=== PATIENT | male | born 1940 | race Caucasian/White ===

== ENCOUNTER 2017-11-22 10:15 | Inpatient (IN) | payer MEDICARE, BC ==
[~2017-11-22] VITALS: Ht 175.3 cm; Wt 90.7 kg
[~2017-11-22 10:15] MED LIST: DIOVAN HCT 3201 EAC1 ORAL; FLOMAX0.4 MG ORAL; LANSOPRAZOLE30 MG ORAL; SIMVASTATIN20 MG ORAL
[2018-07-31] MEDS ORDERED: HUMALOG100 UNIT/4 SUBQ (13:05)
[2018-07-31] MEDS ORDERED: JANUVIA50 MG ORAL (13:05)
[2018-07-31] MEDS ORDERED: LANTUS SOL100 UNIT/1 SUBQ (13:05)
[2018-07-31] MEDS ORDERED: [UNRECOGNIZED DRUG - OTHER] PO (13:05)
[2018-07-31] MEDS ORDERED: LOSARTAN POTAS100 MG ORAL (13:05)
[2018-07-31] MEDS ORDERED: CRESTOR10 M2 ORAL (13:05)
[2018-08-01] VITALS (15 sets, daily range): BP systolic 88–137; BP diastolic 52–89
[2018-08-01] MEDS ORDERED: oxyCONTIN 20mg tab ORAL ONE ×2 (06:00→13:23)
[2018-08-01] MEDS ORDERED: ceFAZolin 1gm IVPB IVPB ONE ×2 (06:00)
[2018-08-01] MEDS ORDERED: celeBREX 200mg Cap **SURGERY PATIENTS ONLY ORAL ONE ×2 (06:00→13:24)
--- NOTE | 2018-08-01 14:12 | Pre-Procedure Note/Attestation ---
Pre-Procedure Note/Attestation Complete Prior to Procedure Planned Procedure: left Procedure Narrative: left knee replacement Indications for Procedure Pre-Operative Diagnosis: left knee arthritis Attestation I attest that I discussed the nature of the procedure; its benefits; risks and complications; and alternatives (and the risks and benefits of such alternatives ), prior to the procedure, with the patient (or the patient's legal aircraft sales representative). I attest that, if there was a reasonable possibility of needing a blood transfusion, the patient (or the patient's legal aircraft sales representative) was given the [facility] standardized written summary, pursuant to the [place] Blood Safety Act ([place] Health and Safety Code # 1645, as amended). I attest that I re-evaluated the patient just prior to the surgery and that there has been no change in the patient's H&P, except as documented below: Dao Mueller MD Aug 01, 2018 14:12
--- NOTE | 2018-08-01 14:12 | Operative Note - PDOC ---
Operative Note Operative Note Pre-op Diagnosis: left knee arthritis Procedure: see op report Post-op Diagnosis: same as pre-op plus Operative Findings: consistent w/pre-op dx studies Anesthesia: general Specimen: none Complications: none Estimated Blood Loss: none Implant(s) used?: Yes Dao Mueller MD Aug 01, 2018 14:12
[2018-08-01] MEDS ORDERED: Milk of Magnesia 30ml Ud ORAL PRN (14:15)
[2018-08-01] MEDS ORDERED: Propofol 200mg/20ml IV ONE (14:40)
[2018-08-01] MEDS ORDERED: LR 1000ml ONE (14:40)
[2018-08-01] MEDS ORDERED: Sterile Water Irrig 1000ml IRRIG ONE (14:40)
[2018-08-01] MEDS ORDERED: NS Irrig 1000ml ONE (14:40)
[2018-08-01] MEDS ORDERED: Bupivacaine 0.5% Inj 30 ml vial INJ ONE (14:44)
[2018-08-01] MEDS ORDERED: cloNIDine 1000mcg/10ml inj ONE (14:44)
[2018-08-01] MEDS ORDERED: Morphine Sulfate PF 10 ML ONE (14:47)
[2018-08-01] MEDS ORDERED: Ketorolac 30mg Inj ONE (14:47)
[2018-08-01] MEDS ORDERED: Kenalog-40 1ml Vial ONE (14:47)
[2018-08-01] MEDS ORDERED: Bupivacaine w/Epi 0.25% 30ml Vial INJ ONE (14:47)
[2018-08-01] MEDS ORDERED: Bacitracin 50000 Units Vial ONE (14:48)
[2018-08-01] MEDS ORDERED: NeoSporin Gu Irrig 1ml Amp IRRIG ONE (14:48)
[2018-08-01] MEDS ORDERED: Dexamethasone 4mg/ml vial ONE (14:49)
[2018-08-01] MEDS ORDERED: Lidocaine 1% MPF 10mg/ml 5ml ONE (14:49)
[2018-08-01] MEDS ORDERED: Sodium Chloride 10ml vial INJ ONE (14:49)
[2018-08-01] MEDS ORDERED: EPINEPHrine 1mg/1ml Amp ONE (14:49)
[2018-08-01] MEDS ORDERED: Alfentanil 2ml Inj ONE (14:50)
[2018-08-01] MEDS ORDERED: ePHEDrine 50mg/ml Inj ONE (15:19)
[2018-08-01] MEDS ORDERED: LR 1000ml 1,000 ML IVLG SCH (15:34)
--- NOTE | 2018-08-01 15:42 | Anethesia Preoperative Eval ---
Anesthesia Pre-op PMH/ROS General Date of Evaluation: Aug 01, 2018 Time of Evaluation: 14:41 Anesthesiologist: Tyler ASA Score: ASA 3 Mallampati Score Class I : Soft palate, uvula, fauces, pillars visible Class II: Soft palate, uvula, fauces visible Class III: Soft palate, base of uvula visible Class IV: Only hard plate visible Mallampati Classification: Class II Surgeon: Mueller Diagnosis: L Knee Pain Surgical Procedure: l Knee Total Arthroplasty Anesthesia History: none Family History: no anesthesia problems Allergies: Coded Allergies: LEVOFLOXACIN (Verified Allergy, Mild, Rash, 04/17/13) Medications: see eMAR Patient NPO?: Yes NPO Date: Jul 31, 2018 NPO Time: 1900 Past Medical History Cardiovascular: Reports: HTN, other - HL Gastrointestinal/Genitourinary: Reports: GERD, other - Renal Cell CA Endocrine: Reports: DM PSxH Narrative: L Nephrectomy, L Knee Arthroscopy Anesthesia Pre-op Phys. Exam Physician Exam Last Vital Signs Date Time Temp Pulse Resp B/P (MAP) Pulse Ox O2 Delivery O2 Flow Rate FiO2 08/01/18 13:48 Room Air 08/01/18 13:28 97.9 93 18 137/89 (105) 96 Constitutional: NAD Neurologic: CN 2-12 intact Cardiovascular: RRR Respiratory: CTA Gastrointestinal: S/NT/ND Airway Exam Mallampati Score: Class II MO: full ROM: full Teeth: missing, intact Anesthesia Pre-op A/P Risk Assessment & Plan Assessment: ASA 3 Plan: GA, Spinal, SED Status Change Before Surgery: No Pre-Antibiotics Dru grams Ancef IV Given Within 1 Hr of Incision: Yes Time Given: 15:41 Mc Scott MD Aug 01, 2018 15:42
--- NOTE | 2018-08-01 15:43 | Immediate Post-Op Evaluation ---
Immediate Post-Op Evalulation Immediate Post-Op Evalulation Procedure: L Knee Total Arthroplasty Date of Evaluation: Aug 01, 2018 Time of Evaluation: 17:35 IV Fluids: 1000 LR Blood Products: 0 Estimated Blood Loss: 25 Urinary Output: 100 Blood Pressure Systolic: 105 Blood Pressure Diastolic: 52 Pulse Rate: 94 Respiratory Rate: 16 O2 Sat by Pulse Oximetry: 100 Temperature (Fahrenheit): 97.9 Pain Score (1-10): 1 Nausea: No Vomiting: No Complications 0 Patient Status: awake, reacts, patent, none Hydration Status: adequate Dru Grams Ancef IV Given Within 1 Hr of Incision: Yes Time Given: 15:41 Mc Scott MD Aug 01, 2018 15:43
[2018-08-01] MEDS ORDERED: Meperidine 50mg/ml Inj(FOR RIGORS ONLY) IVP PRN (15:45)
[2018-08-01] MEDS ORDERED: oxyCODONE HCL/Acetaminophen 5/325mg ORAL PRN (15:45)
[2018-08-01] MEDS ORDERED: Midazolam 2mg/2ml Inj IVP PRN (15:45)
[2018-08-01] MEDS ORDERED: Tranexamic Acid 1,000 MG in NS 65 ML IVPB ONE (15:45)
[2018-08-01] MEDS ORDERED: Norco 5mg/325mg tab ORAL PRN (15:45)
[2018-08-01] MEDS ORDERED: Hydromorphone 0.5mg/0.5ml inj IVP PRN (15:45)
[2018-08-01] MEDS ORDERED: Metoclopramide 10mg/2ml Inj IVP PRN (15:45)
[2018-08-01] MEDS ORDERED: HYDROcodone/Acetamin 7.5/325 tab ORAL PRN (15:45)
[2018-08-01] MEDS ORDERED: LORazepam Inj 2mg/ml 1ml IV PRN (15:45)
[2018-08-01] MEDS ORDERED: Atropine Sulfate 0.4mg/ml inj IVP PRN (15:45)
[2018-08-01] MEDS ORDERED: fentaNYL 100 mcg/2 mL IV PRN (15:45)
[2018-08-01] MEDS ORDERED: DiphenhydrAMINE 50mg/ml Inj IVP PRN (15:45)
[2018-08-01] MEDS ORDERED: Bacitracin 50000 Units Vial IRRIG ONE (16:49)
[2018-08-01] MEDS ORDERED: Duramorph PF 10mg/10ml amp EPIDUR ONE (16:50)
--- NOTE | 2018-08-01 17:21 | 48 Hour Post Anesthesia Eval ---
Post Anesthesia Evaluation Procedure: L Knee Total Arthroplasty Date of Evaluation: Aug 01, 2018 Time of Evaluation: 19:54 Blood Pressure Systolic: 112 0: 62 Pulse Rate: 86 Respiratory Rate: 18 Temperature (Fahrenheit): 98.2 O2 Sat by Pulse Oximetry: 100 Airway: patent Nausea: No Vomiting: No Pain Intensity: 1 Hydration Status: adequate Cardiopulmonary Status: Stable Mental Status/LOC: patient returned to baseline Follow-up Care/Observations: 0 Post-Anesthesia Complications: 0 Follow-up care needed: N/A Mc Scott MD Aug 01, 2018 17:21
[2018-08-01 18:18] LABS: HEMATOCRIT 28.4 % (42.0-52.0); HEMOGLOBIN 9.6 G/DL (14.2-18.0); LYMPHOCYTES % (AUTO) 21.3 % (20.0-45.0); MEAN CORPUSCULAR VOLUME 94 FL (80-99); MONOCYTES % (AUTO) 2.8 % (1.0-10.0); NEUTROPHILS % (AUTO) 72.9 % (45.0-75.0); PLATELET COUNT 175 K/UL (150-450); RED BLOOD COUNT 3.03 M/UL (4.70-6.10); RED CELL DISTRIBUTION WIDTH 13.1 % (11.6-14.8); WHITE BLOOD COUNT 6.2 K/UL (4.8-10.8)
[2018-08-01] MEDS ORDERED: D5 1/2NS w/KCl 20mEq 1,000 ML IV SCH (20:30)
[2018-08-01] MEDS ORDERED: Morphine Sulfate 2mg/ml Inj IVP PRN (20:30)
--- NOTE | 2018-08-01 21:15 | Operative Note - Dictated ---
DATE OF OPERATION: 07/31/2018 PREOPERATIVE DIAGNOSIS: Left knee end-stage osteoarthritis. POSTOPERATIVE DIAGNOSIS: Left knee end-stage osteoarthritis. PROCEDURE: Left total knee arthroplasty. SURGEON: Dao Mueller M.D. ANESTHESIA: Femoral with general. INDICATION FOR PROCEDURE: The patient is a pleasant gentleman who has had progressive left knee osteoarthritis, failed conservative treatment, elected to undergo left total knee arthroplasty. The risks, limitations, expectations, and complications of procedure were discussed in detail. All questions were addressed. DESCRIPTION OF PROCEDURE: After informed consent was obtained, the patient was brought to the operating room, and the patient was placed under femoral general anesthesia. Kenney catheter was placed. Ancef was administered. Tourniquet was applied to the left proximal leg. Left leg was prepped and draped in a sterile manner. Time-out was performed. Esmarch was used to exsanguinate the extremity. Skin was incised. Subvastus arthrotomy was performed. Distal femoral cutting block was placed and the distal femur was resected. Posterior to anterior sizing guide was placed and size 4 cutting block was placed. The anterior and posterior chamfer cuts were then made. The proximal aspect of the tibia was well visualized. The lateral meniscus was removed. An external tibial cutting guide was placed and proximal tibia was resected. Once that was done, size 4 femur, size 4 tibial 9 mm insert was placed. Knee came out to a slight hyperextension to 11 mm came out to full extension, good stability, full extension, 10 degrees flexion. Good stability. At this point, the patella component was appropriately externally rotated and keel punch was prepared. Patella was measured 26 mm. Freehand resection was performed, 29 mm patellar component was selected 26 mm. Cement was prepared and implants were impacted into place. Arthrotomy site was closed with #1 Vicryl suture, 2-0 Vicryl suture, and 3-0 Monocryl sutures. Dermabond and compression dressing was applied. The patient was awoken and taken to recovery room with stable vital signs. ESTIMATED BLOOD LOSS: Minimal. COMPLICATIONS: None. SPECIMENS: None. IMPLANTS: [place] size 4 femoral component, size 4 tibial base plate with an 11 mm tibial insert. Dao Mueller M.D. DR: Ishmael JOB#: [id number] CC: ANJEL
[2018-08-01] MEDS: oxyCONTIN 20mg tab ORAL SCH (21:29)
[2018-08-01] MEDS: 1/2NS w/KCl 20mEq 1000ml 1,000 ML IV SCH (22:19)
[2018-08-01] MEDS: Morphine Sulfate 4mg/ml Inj (IV/IM USE ONLY) IVP PRN (22:46)
[2018-08-01] MEDS: NovoLOG Insulin Flexpen SUBQ SCH (23:02)
[2018-08-01] MEDS: ceFAZolin sod 2 GM in D5W 110 ML IV SCH (23:58)
[2018-08-02] VITALS: BP 134/85
[2018-08-02] MEDS: SulfASALAZine 500MG tab ORAL SCH ×5 (00:20→23:28)
[2018-08-02] MEDS: oxyCODONE 5mg IR tab ORAL PRN ×5 (00:23→21:31)
[2018-08-02 04:00] VITALS: BP 126/82
[2018-08-02] MEDS: Morphine Sulfate 4mg/ml Inj (IV/IM USE ONLY) IVP PRN ×2 (04:10→08:21)
[2018-08-02] MEDS: sitaGLIPtin 50mg tab ORAL SCH (06:05)
[2018-08-02 06:17] LABS: BASOPHILS % (AUTO) 0.4 % (0.0-2.0); EOSINOPHILS % (AUTO) 0.2 % (0.0-3.0); HEMATOCRIT 29.5 % (42.0-52.0); HEMOGLOBIN 9.4 G/DL (14.2-18.0); LYMPHOCYTES % (AUTO) 16.9 % (20.0-45.0); MEAN CORPUSCULAR VOLUME 92 FL (80-99); MONOCYTES % (AUTO) 10.9 % (1.0-10.0); NEUTROPHILS % (AUTO) 71.6 % (45.0-75.0); PLATELET COUNT 181 K/UL (150-450); RED BLOOD COUNT 3.21 M/UL (4.70-6.10); RED CELL DISTRIBUTION WIDTH 12.9 % (11.6-14.8); WHITE BLOOD COUNT 8.6 K/UL (4.8-10.8)
[2018-08-02] MEDS: NovoLOG Insulin Flexpen SUBQ SCH ×4 (06:30→20:23)
[2018-08-02 08:00] VITALS: BP 126/62
[2018-08-02] MEDS: Docusate 100mg cap ORAL SCH ×3 (08:21→17:28)
[2018-08-02] MEDS: celeBREX 200mg Cap **SURGERY PATIENTS ONLY ORAL SCH (08:27)
[2018-08-02] MEDS: ceFAZolin sod 2 GM in D5W 110 ML IV SCH (08:28)
[2018-08-02] MEDS: Acetaminophen 500mg (ES) tab ORAL SCH ×3 (08:28→17:30)
[2018-08-02] MEDS: oxyCONTIN 20mg tab ORAL SCH (08:28)
--- NOTE | 2018-08-02 10:40 | Consultation ---
Consult Note Assessment/Plan #[id number] lft tka DM HTN HLD Sharyn Wade DO Aug 02, 2018 10:39
[2018-08-02] MEDS ORDERED: oxyCODONE 5mg IR tab ORAL PRN (11:30)
[2018-08-02] MEDS ORDERED: Morphine Sulfate 2mg/ml Inj IVP PRN (11:30)
[2018-08-02] MEDS: 1/2NS w/KCl 20mEq 1000ml 1,000 ML IV SCH (11:48)
[2018-08-02 12:00] VITALS: BP 132/71
[2018-08-02 16:00] VITALS: BP 133/71
[2018-08-02 20:00] VITALS: BP 127/77
[2018-08-02] MEDS: Atorvastatin 20mg tab ORAL SCH (20:18)
[2018-08-02] MEDS: Levemir Flexpen SUBQ SCH (20:24)
[2018-08-03] VITALS: BP 115/61
[2018-08-03 04:00] VITALS: BP 138/75
[2018-08-03] MEDS: oxyCODONE 5mg IR tab ORAL PRN ×2 (05:46→11:42)
[2018-08-03] MEDS: sitaGLIPtin 50mg tab ORAL SCH (06:07)
[2018-08-03] MEDS: SulfASALAZine 500MG tab ORAL SCH ×4 (06:07→23:33)
[2018-08-03 06:08] LABS: BASOPHILS % (AUTO) 0.7 % (0.0-2.0); HEMATOCRIT 28.9 % (42.0-52.0); HEMOGLOBIN 9.3 G/DL (14.2-18.0); LYMPHOCYTES % (AUTO) 20.3 % (20.0-45.0); MEAN CORPUSCULAR VOLUME 93 FL (80-99); MONOCYTES % (AUTO) 14.9 % (1.0-10.0); PLATELET COUNT 171 K/UL (150-450); RED BLOOD COUNT 3.12 M/UL (4.70-6.10); RED CELL DISTRIBUTION WIDTH 13.4 % (11.6-14.8); WHITE BLOOD COUNT 8.7 K/UL (4.8-10.8)
[2018-08-03] MEDS: NovoLOG Insulin Flexpen SUBQ SCH ×4 (06:20→21:00)
[2018-08-03 08:00] VITALS: BP 147/85
[2018-08-03] MEDS: Docusate 100mg cap ORAL SCH ×3 (08:34→18:10)
[2018-08-03] MEDS: Acetaminophen 500mg (ES) tab ORAL SCH ×3 (08:34→18:10)
[2018-08-03] MEDS: celeBREX 200mg Cap **SURGERY PATIENTS ONLY ORAL SCH (08:35)
[2018-08-03 12:00] VITALS: BP 123/77
--- NOTE | 2018-08-03 13:57 | Pulmonology Progress Note ---
Assessment/Plan Assessment/Plan L TKA DM HTN Pain much improved pain contro pt wound care dvt prophyalsix dc panning rehab Subjective Constitutional: Reports: no symptoms HEENT: Repors: no symptoms Respiratory: Reports: no symptoms Genitourinary: Reports: no symptoms Allergies: Coded Allergies: LEVOFLOXACIN (Verified Allergy, Mild, Rash, 04/17/13) Subjective pain better controlle out of bed working withpt on ra tolerating po Objective Last 24 Hour Vital Signs Date Time Temp Pulse Resp B/P (MAP) Pulse Ox O2 Delivery O2 Flow Rate FiO2 08/03/18 12:00 98.5 108 19 123/77 (92) 96 08/03/18 09:04 98.0 08/03/18 09:00 Room Air Room Air 08/03/18 08:00 98.4 98 17 147/85 (105) 94 08/03/18 04:00 98.0 90 18 138/75 (96) 98 08/03/18 00:00 98.4 95 18 115/61 (79) 98 08/02/18 21:00 Room Air Room Air 08/02/18 20:00 98.2 89 18 127/77 (94) 98 08/02/18 16:00 98.0 94 20 133/71 (91) 95 Intake and Output 08/02/18 08/03/18 19:00 07:00 Intake Total 1732 ml 480 ml Output Total 600 ml 2300 ml Balance 1132 ml -1820 ml Intake Oral 720 ml 480 ml IV Total 1012 ml Output Urine Total 600 ml 2300 ml General Appearance: WD/WN Respiratory/Chest: lungs clear, normal breath sounds Cardiovascular: normal rate, regular rhythm Abdomen: soft, non tender, no organomegaly Extremities: no cyanosis Skin: no rash Neurologic/Psychiatric: abnormal gait, alert, oriented x 3 Microbiology Date/Time Source Procedure Growth Status 08/01/18 13:05 Nasal Nares MRSA Culture - Final NO METHICILLIN RESISTANT STAPH AUREUS... Complete Laboratory Tests 08/03/18 05:40: White Blood Count 8.7, Red Blood Count 3.12L, Hemoglobin 9.3L, Hematocrit 28.9L , Mean Corpuscular Volume 93, Mean Corpuscular Hemoglobin 29.9, Mean Corpuscular Hemoglobin Concent 32.3, Red Cell Distribution Width 13.4, Platelet Count 171, Mean Platelet Volume 7.4, Neutrophils (%) (Auto) 59.0, Lymphocytes (% ) (Auto) 20.3, Monocytes (%) (Auto) 14.9H, Eosinophils (%) (Auto) 5.0H, Basophils (%) (Auto) 0.7 Current Medications Medications (Trade) Dose Ordered Sig/Katia Route PRN Reason Start Time Stop Time Status Last Admin Dose Admin Acetaminophen (Tylenol) 1,000 mg THREE TIMES A DAY ORAL 08/02/18 09:00 09/01/18 08:59 08/03/18 13:43 Aspirin (ASA) 325 mg Q12HR ORAL 08/02/18 18:00 09/01/18 17:59 08/03/18 08:33 Atorvastatin Calcium (Lipitor) 40 mg BEDTIME ORAL 08/02/18 21:00 09/01/18 20:59 08/02/18 20:18 Celecoxib (CeleBREX) 200 mg DAILY ORAL 08/02/18 09:00 09/01/18 08:59 08/03/18 08:35 Dextrose (Dextrose 50%) 25 ml Q30M PRN IV Hypoglycemia 08/01/18 22:00 08/31/18 21:59 Dextrose (Dextrose 50%) 50 ml Q30M PRN IV Hypoglycemia 08/01/18 22:00 08/31/18 21:59 Docusate Sodium (Colace) 100 mg THREE TIMES A DAY ORAL 08/02/18 09:00 09/01/18 08:59 08/03/18 13:42 Ferrous Sulfate (Feosol) 325 mg THREE TIMES A DAY ORAL 08/02/18 09:00 09/01/18 08:59 08/03/18 13:42 Gabapentin (Neurontin) 100 mg THREE TIMES A DAY ORAL 08/02/18 09:00 09/01/18 08:59 08/03/18 13:42 Insulin Aspart (NovoLOG) BEFORE MEALS AND HS SUBQ 08/01/18 22:30 08/31/18 22:29 08/03/18 11:35 Insulin Detemir (Levemir) 12 units BEDTIME SUBQ 08/02/18 21:00 09/01/18 20:59 08/02/18 20:24 Magnesium Hydroxide (Mom) 30 ml DAILY PRN ORAL Constipation 08/01/18 14:15 08/31/18 14:14 Morphine Sulfate (Morphine Sulfate) 2 mg Q3H PRN IVP Severe Breakthru Pain (>7) 08/02/18 11:30 08/08/18 20:29 Ondansetron HCl (Zofran) 4 mg Q6H PRN IVP Nausea & Vomiting 08/01/18 20:30 08/31/18 20:29 Oxycodone HCl (Roxicodone) 5 mg Q4H PRN ORAL Mild Pain (Pain Scale 1-3) 08/02/18 11:30 08/09/18 11:29 Oxycodone HCl (Roxicodone) 10 mg Q4H PRN ORAL Moderate Pain (Pain Scale 4-6) 08/02/18 11:30 08/09/18 11:29 08/03/18 11:42 Oxycodone HCl (Roxicodone) 15 mg Q4H PRN ORAL Severe Pain (Pain Scale 7-10) 08/02/18 11:30 08/09/18 11:29 Sitagliptin Phosphate (Januvia) 50 mg ACBREAKFAST ORAL 08/02/18 06:30 09/01/18 06:29 08/03/18 06:07 Sulfasalazine (Azulfidine) 500 mg EVERY 6 HOURS ORAL 08/02/18 00:00 09/01/18 00:00 08/03/18 11:35 Temazepam (Restoril) 7.5 mg HSPRN PRN ORAL Insomnia 08/01/18 21:00 08/08/18 20:59 08/01/18 23:04 Sharyn Wade DO Aug 03, 2018 13:57
--- NOTE | 2018-08-03 15:30 | Consultation ---
DATE OF CONSULTATION: 08/02/2018 PULMONARY CONSULTATION CONSULTING PHYSICIAN: Sharyn Wade D.O. REASON FOR CONSULTATION: Postop shortness of breath, medical management. HISTORY OF PRESENT ILLNESS: This is an elderly gentleman, who is status post left TKA by Dr. Mueller on 08/01/2018. He is having significant postoperative pain, which has been reviewed on OxyContin, IV morphine, and oxycodone. He denies any chest pain, nausea, vomiting, diarrhea, urine output, and no bowel movement at this time. PAST MEDICAL HISTORY: Includes diabetes, hypercholesterolemia, and peripheral neuropathy. SOCIAL HISTORY: Negative for tobacco or drugs. MEDICATIONS: Pre-hospital and current hospital medications were reviewed, reconciled, and documented in the electronic medical record by dose, frequency, and route. ALLERGIES: He has no known drug allergies. CODE STATUS: He is Full code. REVIEW OF SYSTEMS: Previously negative for chest pain, short of breath, nausea, diarrhea, fever, chills, or weight changes. PHYSICAL EXAMINATION: GENERAL: At the time of exam, he is alert. He is oriented. He is in no acute respiratory distress. VITAL SIGNS: He is afebrile. Pulse 95, blood pressure 115/61, and 98% on room air. HEENT: Normocephalic and atraumatic. Oropharynx is moist. Nasal mucosa moist. NECK: Supple without lymphadenopathy. LUNGS: . HEART: Regular rhythm without murmur. ABDOMEN: Soft, nontender. Positive bowel sounds EXTREMITIES: With trace edema on the left. Decreased range of motion secondary to postoperative state. NEUROLOGIC: No focal neurologic deficits. SKIN: No skin rashes or wounds are present. LABORATORY AND DIAGNOSTIC DATA: His white count is 8.6, hemoglobin 9.4, and platelets are 181. Chemistries have not been obtained. No other imaging is available. EKG is negative for acute ST changes. ASSESSMENT: Status post TKA, diabetes, hypertension. PLAN: Postoperative care will be continued. Pain control will be modified to include oxycodone q. 4 hours p.r.n., discontinue the OxyContin and p.r.n. breakthrough with the IV morphine. DVT prophylaxis b.i.d. has been initiated. Aspiration precautions. Glycemia control. Bowel care and we will continue to follow the patient. He has been going to rehabilitation and arrangements will be made. Sharyn Wade D.O. DR: MICHAEL JOB#: [id number] CC:
[2018-08-03 16:00] VITALS: BP 111/66
[2018-08-03] MEDS: Atorvastatin 20mg tab ORAL SCH (20:24)
[2018-08-03] MEDS: Levemir Flexpen SUBQ SCH (20:25)
[2018-08-03 20:53] VITALS: BP 129/80
[2018-08-04] VITALS: BP 133/76
[2018-08-04 04:00] VITALS: BP 135/76
[2018-08-04] MEDS: oxyCODONE 5mg IR tab ORAL PRN (04:03)
[2018-08-04] MEDS: SulfASALAZine 500MG tab ORAL SCH ×2 (06:09→11:22)
[2018-08-04] MEDS: NovoLOG Insulin Flexpen SUBQ SCH ×3 (06:24→16:30)
[2018-08-04] MEDS: sitaGLIPtin 50mg tab ORAL SCH (06:24)
[2018-08-04 08:00] VITALS: BP 129/79
[2018-08-04 08:02] LABS: BASOPHILS % (AUTO) 0.7 % (0.0-2.0); EOSINOPHILS % (AUTO) 5.4 % (0.0-3.0); HEMATOCRIT 28.7 % (42.0-52.0); HEMOGLOBIN 9.4 G/DL (14.2-18.0); LYMPHOCYTES % (AUTO) 16.9 % (20.0-45.0); MEAN CORPUSCULAR VOLUME 92 FL (80-99); MONOCYTES % (AUTO) 11.9 % (1.0-10.0); NEUTROPHILS % (AUTO) 65.1 % (45.0-75.0); PLATELET COUNT 169 K/UL (150-450); RED BLOOD COUNT 3.11 M/UL (4.70-6.10); RED CELL DISTRIBUTION WIDTH 12.8 % (11.6-14.8)
[2018-08-04] MEDS: oxyCODONE 15mg IR tab ORAL PRN ×2 (08:39→13:54)
--- NOTE | 2018-08-04 08:56 | General Progress Note ---
Assessment/Plan Assessment/Plan L TKA DM HTN Pain Improved pain contro PT, ambulate wound care dvt prophyalsix dc planning rehab disc w PT, RN Subjective Time patient seen: 08:55 Allergies: Coded Allergies: LEVOFLOXACIN (Verified Allergy, Mild, Rash, 04/17/13) Subjective LLE pain Objective Last 24 Hour Vital Signs Date Time Temp Pulse Resp B/P (MAP) Pulse Ox O2 Delivery O2 Flow Rate FiO2 08/04/18 08:00 98.3 105 21 129/79 (96) 95 08/04/18 04:00 98.0 84 17 135/76 (95) 98 08/04/18 00:00 98.0 90 18 133/76 (95) 98 08/03/18 21:00 Room Air Room Air 08/03/18 20:53 98.2 83 18 129/80 (96) 95 08/03/18 18:59 97.9 08/03/18 16:00 97.9 82 19 111/66 (81) 96 08/03/18 12:00 98.5 108 19 123/77 (92) 96 08/03/18 09:00 Room Air Room Air Intake and Output 08/03/18 08/04/18 18:59 06:59 Intake Total 1200 ml Output Total 2850 ml Balance -1650 ml Intake Oral 1200 ml Output Urine Total 2850 ml Laboratory Tests 08/04/18 06:47: White Blood Count 8.0, Red Blood Count 3.11L, Hemoglobin 9.4L, Hematocrit 28.7L , Mean Corpuscular Volume 92, Mean Corpuscular Hemoglobin 30.1, Mean Corpuscular Hemoglobin Concent 32.6, Red Cell Distribution Width 12.8, Platelet Count 169, Mean Platelet Volume 7.0, Neutrophils (%) (Auto) 65.1, Lymphocytes (% ) (Auto) 16.9L, Monocytes (%) (Auto) 11.9H, Eosinophils (%) (Auto) 5.4H, Basophils (%) (Auto) 0.7 Height (Feet): 5 Height (Inches): 9.00 Weight (Pounds): 200 General Appearance: alert, mild distress, overweight Cardiovascular: regular rhythm, tachycardia Respiratory/Chest: lungs clear Edema: 2+ Leg (L) Jamie Johnson MD Aug 04, 2018 08:56
[2018-08-04] MEDS: celeBREX 200mg Cap **SURGERY PATIENTS ONLY ORAL SCH (09:27)
[2018-08-04] MEDS: Acetaminophen 500mg (ES) tab ORAL SCH ×2 (09:28→13:54)
[2018-08-04] MEDS: Docusate 100mg cap ORAL SCH ×2 (09:28→13:55)
[2018-08-04 12:00] VITALS: BP 119/74
[2018-08-04] MEDS ORDERED: SULFASALAZINE500 MG ORAL (14:52)
[2018-08-04] MEDS ORDERED: PERCOCET 10-321 EACH ORAL (14:55)
[2018-08-04] MEDS ORDERED: NAPROXEN250 MG ORAL (14:56)
[2018-08-04] MEDS ORDERED: CYCLOBENZAPRINE10 MG ORAL (14:57)
[2018-08-04] MEDS ORDERED: NEURONTIN100 MG ORAL (14:59)
[2018-08-04] MEDS ORDERED: ASPIRIN325 MG ORAL (15:01)
[2018-08-04 16:00] VITALS: BP 94/55
[2018-08-04 17:00] VITALS: BP 141/74
--- NOTE | 2018-08-05 17:02 | Cardiology Report ---
APPROVED REPORT EKG Measurement Heart [id number] Normal sinus rhythm Right bundle branch block Abnormal ECG
--- NOTE | 2018-08-06 14:12 | Discharge Summary ---
Discharge Summary Hospital Course Date of Admission Aug 01, 2018 at 12:36 Date of Discharge Aug 04, 2018 at 17:12 Admitting Diagnosis end stage osteoarthritis left knee Reason for Hospitalization: elective surgery HPI Kike Finn is a 78 year old male who was admitted on Aug 01, 2018 at 12: 36 for Left knee osteoarthritis. Patient has had progressive left knee osteoarthritis, failed conservative treatment, elected to undergo left total knee arthroplasty. Patient was admitted for elective surgery. Consultations dr Johnson - IM/gamma ray operator/critical care Procedures s/p total knee arthroplasty 08/[address] Mueller [facility] Course status post surgery course of recovery uneventful initially IV fluids s/p perioperative antibiotics neurovascular status closely monitored, stable incision clean, dry ,and intact pain management addressed , and pain controlled hemodynamically stable patient was working with PT /OT therapists fall precautions maintained tolerated diet , IV fluids discontinued GI prophylaxis provided antiemetics were on board as needed blood pressure was clsoely monitored, remained stable blood sugar was managed with Januvia and long acting Levemir voided freely bowel regimen instituted patient required further rehabilitation in acute hospital patient was transferred to [facility] for further rehabilitation and management FINAL DIAGNOSES s/p end stage osteoarthritis s/p Left total knee arthroplasty HTBN Diabetes Postoperative pain Discharge Medications Continued Medications: Aspirin* (Aspirin*) 325 Mg Tablet 325 MG ORAL DAILY, #42 TAB (This prescription has been renewed) Cyclobenzaprine Hcl* (Flexeril*) 10 Mg Tablet 10 MG ORAL TWICE A DAY, #60 TAB (This prescription has been renewed) Gabapentin* (Neurontin*) 100 Mg Capsule 100 MG ORAL THREE TIMES A DAY, #90 CAP 0 Refills (This prescription has been renewed) Insulin Glargine (Lantus) 100 Unit/1 Ml Insuln.pen 12 UNITS SUBQ BEDTIME, #1 EA 0 Refills (This prescription has been renewed) Insulin Lispro (Humalog) 100 Unit/1 Ml Cartridge 5 SUBQ BEFORE MEALS, #1 UNITS 0 Refills (This prescription has been renewed) Losartan Potassium (Losartan Potassium) 100 Mg Tablet 100 MG ORAL DAILY, TAB (This prescription has been renewed) Naproxen* (Naprosyn*) 250 Mg Tablet 500 MG ORAL TWICE A DAY, #60 TAB 0 Refills (This prescription has been renewed) Oxycodone Hcl/Acetaminophen 10-325 Mg Tablet (Percocet 10-325 Mg Tablet*) 1 Each Tablet 1 TAB ORAL Q6H PRN for For Pain, #30 TAB 0 Refills (This prescription has been renewed) Rosuvastatin Calcium* (Crestor*) 10 Mg Tablet 10 MG ORAL DAILY, TAB (This prescription has been renewed) Sitagliptin (Januvia) 50 Mg Tablet 50 MG ORAL DAILY, TAB (This prescription has been renewed) Sulfasalazine* (Azulfidine*) 500 Mg Tablet 500 MG ORAL FOUR TIMES A DAY, TAB (This prescription has been renewed) Tamsulosin HCl (Flomax) 0.4 Mg Cap 0.4 MG ORAL DAILY, TAB (This prescription has been renewed) Discharge Condition Upon Discharge: stable Discharge Disposition Patient was discharged to Acute Rehab Hosp/Unit(62) Discharge Instructions Discharge Instructions Special Instructions I have been assigned to complete a D/C Summary on this account. I was not involved in the patient management Liana Damico NP Aug 06, 2018 14:12
== END 2018-08-04 17:12 | disposition short-term general hospital (02) | DRG 470 ==
LOC: SDSOVERFLO 08-01 12:36 → 3E 08-01 20:23
PROC: 0SRD0J9 Replacement of Left Knee Joint with Synthetic Substitute, Cemented, Open Approach (ICD-10-PCS; principal; 2018-07-31)
DX: M17.12 Unilateral primary osteoarthritis, left knee (principal); E11.9 Type 2 diabetes mellitus without complications; G89.18 Other acute postprocedural pain; Z88.1 Allergy status to other antibiotic agents; Z79.82 Long term (current) use of aspirin; Z79.4 Long term (current) use of insulin; E78.5 Hyperlipidemia, unspecified; I10 Essential (primary) hypertension; G62.9 Polyneuropathy, unspecified
CPT/HCPCS: 36415; 82962; 85025; 86850; 86900; 86901; 87081; 93005; 94003; 94150; J1815; J2405; J3490; S5561

== ENCOUNTER 2019-08-07 05:35 | Day surgery (SDC) | payer MEDICARE, BC ==
[2019-08-07] VITALS (10 sets, daily range): BP systolic 98–124; BP diastolic 60–82
[~2019-08-07] VITALS: Ht 175.3 cm; Wt 83.9 kg
[~2019-08-07 05:35] MED LIST changes: +ASPIRIN325 MG ORAL; +CRESTOR10 M2 ORAL; +CYCLOBENZAPRINE10 MG ORAL; +HUMALOG100 UNIT/4 SUBQ; +JANUVIA50 MG ORAL; +LANTUS SOL100 UNIT/1 SUBQ; +LOSARTAN POTAS100 MG ORAL; +NAPROXEN250 MG ORAL; +NEURONTIN100 MG ORAL; +PERCOCET 10-321 EACH ORAL; +SULFASALAZINE500 MG ORAL; +[UNRECOGNIZED DRUG - OTHER] PO
[2019-08-07] MEDS ORDERED: ceFAZolin sod 1gm in D5W 55ml IVPB ONE (06:00)
[2019-08-07] MEDS ORDERED: celeBREX 200mg Cap **SURGERY PATIENTS ONLY ORAL ONE (06:00)
[2019-08-07] MEDS ORDERED: oxyCONTIN 20mg tab PO ONE (06:00)
[2019-08-07] MEDS ORDERED: fentaNYL 100 mcg/2 mL IV ONE (07:02)
[2019-08-07] MEDS ORDERED: Propofol 200mg/20ml IV ONE (07:03)
[2019-08-07] MEDS ORDERED: Lidocaine 1% MPF 10mg/ml 5ml ONE (07:03)
[2019-08-07] MEDS ORDERED: Sterile Water Irrig 1000ml IRRIG ONE (07:12)
[2019-08-07] MEDS ORDERED: NS Irrig 1000ml ONE (07:12)
[2019-08-07] MEDS ORDERED: LR 1000ml ONE (07:12)
[2019-08-07] MEDS ORDERED: Bupivacaine 0.25% Inj 30ml INJ ONE (07:24)
--- NOTE | 2019-08-07 07:44 | Pre-Procedure Note/Attestation ---
Pre-Procedure Note/Attestation Complete Prior to Procedure Planned Procedure: right Procedure Narrative: carpel release Indications for Procedure Pre-Operative Diagnosis: right carpel tunnel syndrome Attestation I attest that I discussed the nature of the procedure; its benefits; risks and complications; and alternatives (and the risks and benefits of such alternatives ), prior to the procedure, with the patient (or the patient's legal canvas products sales representative). I attest that, if there was a reasonable possibility of needing a blood transfusion, the patient (or the patient's legal canvas products sales representative) was given the [facility] standardized written summary, pursuant to the [place] Blood Safety Act ([place] Health and Safety Code # 1645, as amended). I attest that I re-evaluated the patient just prior to the surgery and that there has been no change in the patient's H&P, except as documented below: Dao Mueller MD Aug 07, 2019 07:44
--- NOTE | 2019-08-07 07:44 | Operative Note - PDOC ---
Operative Note Operative Note Pre-op Diagnosis: right carpel tunnel syndrome Procedure: see op report Post-op Diagnosis: same as pre-op plus Operative Findings: consistent w/pre-op dx studies Anesthesia: MAC Specimen: none Complications: none Condition: stable Estimated Blood Loss: none Implant(s) used?: No Dao Mueller MD Aug 07, 2019 07:44
[2019-08-07] MEDS ORDERED: HYDROmorphone 1mg/ml Carpuject SUBQ PRN (07:45)
[2019-08-07] MEDS ORDERED: D5 1/2NS 1,000 ML IV SCH (07:45)
[2019-08-07] MEDS ORDERED: HYDROcodone/Acetamin 5/325 tab ORAL PRN (07:45)
[2019-08-07] MEDS ORDERED: Tylenol #3 tab (300mg/30mg) ORAL PRN (07:45)
[2019-08-07] MEDS ORDERED: Hydromorphone 0.5mg/0.5ml inj IVP PRN (08:00)
[2019-08-07] MEDS ORDERED: LR 1000ml 1,000 ML IVLG SCH (08:00)
--- NOTE | 2019-08-07 08:00 | Anethesia Preoperative Eval ---
Anesthesia Pre-op PMH/ROS General Date of Evaluation: Aug 07, 2019 Time of Evaluation: 07:10 Anesthesiologist: Mack ASA Score: ASA 3 Mallampati Score Class I : Soft palate, uvula, fauces, pillars visible Class II: Soft palate, uvula, fauces visible Class III: Soft palate, base of uvula visible Class IV: Only hard plate visible Mallampati Classification: Class II Surgeon: Ervin Diagnosis: R CTS Surgical Procedure: Carpal tunnel release Anesthesia History: none Family History: no anesthesia problems Allergies: Coded Allergies: LEVOFLOXACIN (Verified Allergy, Mild, Rash, 04/17/13) Medications: see eMAR Patient NPO?: Yes Past Medical History Cardiovascular: Reports: HTN; Denies: CAD, AR, valve dz, arrhythmia, other Pulmonary: Denies: asthma, COPD, ISAAC, other Gastrointestinal/Genitourinary: Reports: GERD, CRI Neurologic/Psychiatric: Reports: depression/anxiety, other - chronic pain; Denies: dementia, CVA, TIA Endocrine: Reports: DM - stable on insulin; Denies: hypothyroidism, steroids, other HEENT: Denies: cataract (L), cataract (R), glaucoma, KARUK (L), KARUK (R), other Hematology/Immune: Reports: anemia - mild; Denies: DVT, bleeding disorder, other Musculoskeletal/Integumentary: Reports: RA, DJD; Denies: OA, DDD, edema, other PMH Narrative: as above PSxH Narrative: Nephrectomy, L knee replacement Anesthesia Pre-op Phys. Exam Physician Exam Last Vital Signs Date Time Temp Pulse Resp B/P (MAP) Pulse Ox O2 Delivery O2 Flow Rate FiO2 08/07/19 07:12 Room Air 08/07/19 06:59 98.4 80 18 124/65 95 Constitutional: NAD Neurologic: CN 2-12 intact Cardiovascular: RRR, no M/R/G Respiratory: CTA Gastrointestinal: S/NT/ND Airway Exam Mallampati Score: Class II MO: limited Neck: stiff ROM: limited Teeth: missing Dentures: no upper, no lower Anesthesia Pre-op A/P Labs see chart Studies Pre-op Studies: EKG - SR Risk Assessment & Plan Assessment: ASA 3 Plan: GA with LMA Status Change Before Surgery: No Pre-Antibiotics Drug: Ancef 1gr. Given Within 1 Hr of Incision: Yes Time Given: 07:58 Hal Giron MD Aug 07, 2019 07:59
--- NOTE | 2019-08-07 08:56 | Immediate Post-Op Evaluation ---
Immediate Post-Op Evalulation Immediate Post-Op Evalulation Procedure: R carpal tonnel release Date of Evaluation: Aug 07, 2019 Time of Evaluation: 08:55 IV Fluids: 800 Blood Products: none Estimated Blood Loss: min Urinary Output: none Blood Pressure Systolic: 107 Blood Pressure Diastolic: 64 Pulse Rate: 78 Respiratory Rate: 20 O2 Sat by Pulse Oximetry: 99 Temperature (Fahrenheit): 97.5 Pain Score (1-10): 1 Nausea: No Vomiting: No Complications none Patient Status: reacts, patent, none Hydration Status: adequate Hal Giron MD Aug 07, 2019 08:56
--- NOTE | 2019-08-07 09:54 | 48 Hour Post Anesthesia Eval ---
Post Anesthesia Evaluation Procedure: R carpal tonnel release Date of Evaluation: Aug 07, 2019 Time of Evaluation: 09:52 Blood Pressure Systolic: 102 0: 56 Pulse Rate: 76 Respiratory Rate: 20 Temperature (Fahrenheit): 97.6 O2 Sat by Pulse Oximetry: 98 Airway: patent Nausea: No Vomiting: No Pain Intensity: 2 Hydration Status: adequate Cardiopulmonary Status: stable Mental Status/LOC: patient returned to baseline Follow-up Care/Observations: n/a Post-Anesthesia Complications: none Follow-up care needed: ready to discharge Hal Giron MD Aug 07, 2019 09:54
--- NOTE | 2019-08-07 14:30 | Operative Note - Dictated ---
DATE OF OPERATION: 08/07/2019 PREOPERATIVE DIAGNOSIS: Right wrist end-stage carpal tunnel syndrome. POSTOPERATIVE DIAGNOSIS: Right wrist end-stage carpal tunnel syndrome. PROCEDURE: 1. Right wrist median nerve decompression at the wrist. 2. Synovectomy flexor tendon cubital tunnel. SURGEON: Dao Mueller M.D. ANESTHESIA: MAC with local. INDICATION FOR PROCEDURE: The patient is a pleasant gentleman who has had progressive carpal tunnel syndrome . Did not respond to conservative treatment. Elected to undergo carpal tunnel release. Risks, limitations, expectations, and complications of procedure were discussed in detail including the need for future surgery, nerve vessel damage, continued pain, risk of anesthesia, medical complications, all questions addressed. DESCRIPTION OF PROCEDURE: After informed was obtained, the patient was brought to the operating room. The patient was placed under general anesthesia. Right arm was prepped and draped in a sterile manner. Time-out was performed. The carpal tunnel was marked out. Esmarch used to exsanguinate the extremity. Skin was incised. Blunt dissection was performed. The palmar fascia was released. Once that was done, the transverse carpal ligament was identified. This under direct visualization was incised once the carpal tunnel was entered. Further release of the carpal tunnel proximally and distally were performed using direct visualization using the tenotomy scissors. Once adequate release proximally and distally was performed, the wound was copiously irrigated. Skin was approximated with 4-0 nylon sutures. Steri-Strips and a compression dressing were applied. The patient was awoken and taken to recovery room with stable vital signs. ESTIMATED BLOOD LOSS: None. COMPLICATIONS: None. SPECIMENS: None. IMPLANTS: None. Dao Mueller M.D. DR: CALVIN JOB#: [id number] CC:
== END 2019-08-07 12:20 | disposition home or self-care (01) ==
LOC: SUR 05:35
DX: G56.01 Carpal tunnel syndrome, right upper limb (principal); I10 Essential (primary) hypertension; K21.9 Gastro-esophageal reflux disease without esophagitis; E11.9 Type 2 diabetes mellitus without complications; Z88.8 Allergy status to other drugs, medicaments and biological substances; F32.9 Major depressive disorder, single episode, unspecified; F41.9 Anxiety disorder, unspecified; Z90.5 Acquired absence of kidney; Z96.652 Presence of left artificial knee joint; M06.9 Rheumatoid arthritis, unspecified
CPT/HCPCS: 64721; 82962; J0690; J2704; J3010; J3490; J7120; 94003; 94150

== ENCOUNTER 2019-10-30 05:32 | Day surgery (SDC) | payer MEDICARE, BC ==
[2019-10-30] VITALS (10 sets, daily range): BP systolic 90–136; BP diastolic 59–73
[~2019-10-30] VITALS: Ht 175.3 cm; Wt 84.8 kg
[~2019-10-30 05:32] MED LIST changes: +BENICAR40 MG ORAL
[2019-10-30] MEDS ORDERED: oxyCONTIN 20mg tab ORAL ONE (06:00)
[2019-10-30] MEDS ORDERED: ceFAZolin 1gm IVPB IVPB ONE ×2 (06:00)
[2019-10-30] MEDS ORDERED: celeBREX 200mg Cap **SURGERY PATIENTS ONLY ORAL ONE (06:00)
[2019-10-30] MEDS ORDERED: Lidocaine 1% MPF 10mg/ml 5ml ONE (06:31)
[2019-10-30] MEDS ORDERED: Propofol 200mg/20ml IV ONE (06:31)
[2019-10-30] MEDS ORDERED: Midazolam 2mg/2ml Inj ONE (06:31)
[2019-10-30] MEDS ORDERED: fentaNYL 100 mcg/2 mL IV ONE (06:31)
[2019-10-30] MEDS ORDERED: Bupivacaine 0.25% Inj 30ml INJ ONE (06:45)
[2019-10-30] MEDS ORDERED: Bupivacaine 0.5% Inj 30 ml vial INJ ONE (06:46)
--- NOTE | 2019-10-30 06:46 | Anethesia Preoperative Eval ---
Anesthesia Pre-op PMH/ROS General Date of Evaluation: Oct 30, 2019 Anesthesiologist: Kiran ASA Score: ASA 3 Mallampati Score Class I : Soft palate, uvula, fauces, pillars visible Class II: Soft palate, uvula, fauces visible Class III: Soft palate, base of uvula visible Class IV: Only hard plate visible Mallampati Classification: Class II Surgeon: Ervin Diagnosis: Left carpal tunnerl syndrome and ring trigger finger Surgical Procedure: Left CTR and ring finger release Anesthesia History: none Family History: no anesthesia problems Allergies: Coded Allergies: LEVOFLOXACIN (Verified Allergy, Mild, Rash, 10/30/19) Medications: see eMAR Patient NPO?: Yes NPO Date: Oct 29, 2019 NPO Time: 19:00 Past Medical History Cardiovascular: Reports: HTN, other - HLD; Denies: CAD, MA, valve dz, arrhythmia Pulmonary: Denies: asthma, COPD, ISAAC, other Gastrointestinal/Genitourinary: Reports: GERD, other - h/o left renal cancer s/ p nephrectomy; Denies: CRI, ESRD Neurologic/Psychiatric: Denies: dementia, CVA, depression/anxiety, TIA, other Endocrine: Reports: DM; Denies: hypothyroidism, steroids, other HEENT: Denies: cataract (L), cataract (R), glaucoma, YOCHA DEHE (L), YOCHA DEHE (R), other Hematology/Immune: Denies: anemia, DVT, bleeding disorder, other Musculoskeletal/Integumentary: Reports: OA; Denies: RA, DJD, DDD, edema, other PSxH Narrative: Left nephrectomy, bilateral knee arthroscopies, right CTR, T&A Anesthesia Pre-op Phys. Exam Physician Exam Last Vital Signs Date Time Temp Pulse Resp B/P (MAP) Pulse Ox O2 Delivery O2 Flow Rate FiO2 10/30/19 06:09 98.1 72 18 119/73 97 Room Air Constitutional: NAD Cardiovascular: RRR Respiratory: CTA Airway Exam Mallampati Score: Class II MO: full ROM: full Anesthesia Pre-op A/P Labs see chart Studies Pre-op Studies: EKG - RBBB=baseline Risk Assessment & Plan Assessment: ASA III Plan: MAC Status Change Before Surgery: No Pre-Antibiotics Drug: Ancef 2g Given Within 1 Hr of Incision: Yes Shereen Jones MD Oct 30, 2019 06:46
--- NOTE | 2019-10-30 06:56 | Pre-Procedure Note/Attestation ---
Pre-Procedure Note/Attestation Complete Prior to Procedure Planned Procedure: left Procedure Narrative: carpel release and left ring finger trigger release Attestation I attest that I discussed the nature of the procedure; its benefits; risks and complications; and alternatives (and the risks and benefits of such alternatives ), prior to the procedure, with the patient (or the patient's legal bilingual call center representative). I attest that, if there was a reasonable possibility of needing a blood transfusion, the patient (or the patient's legal bilingual call center representative) was given the [facility] standardized written summary, pursuant to the [place] Blood Safety Act ([place] Health and Safety Code # 1645, as amended). I attest that I re-evaluated the patient just prior to the surgery and that there has been no change in the patient's H&P, except as documented below: Dao Mueller MD Oct 30, 2019 06:55
--- NOTE | 2019-10-30 06:57 | Operative Note - PDOC ---
Operative Note Operative Note Pre-op Diagnosis: left carpel tunnel and left middle ring finger trigger release Procedure: see op report Post-op Diagnosis: same as pre-op plus Operative Findings: consistent w/pre-op dx studies Anesthesia: regional Specimen: none Complications: none Condition: stable Estimated Blood Loss: none Implant(s) used?: No Dao Mueller MD Oct 30, 2019 06:57
--- NOTE | 2019-10-30 06:57 | Pre-Procedure Note/Attestation ---
Pre-Procedure Note/Attestation Complete Prior to Procedure Planned Procedure: left Procedure Narrative: carpal tunnel release and left ring finger trigger finger release Indications for Procedure Pre-Operative Diagnosis: left carpel tunnel and left middle ring finger trigger release Attestation I attest that I discussed the nature of the procedure; its benefits; risks and complications; and alternatives (and the risks and benefits of such alternatives ), prior to the procedure, with the patient (or the patient's legal sales representative sales manager). I attest that, if there was a reasonable possibility of needing a blood transfusion, the patient (or the patient's legal sales representative sales manager) was given the [facility] standardized written summary, pursuant to the [place] Blood Safety Act ([place] Health and Safety Code # 1645, as amended). I attest that I re-evaluated the patient just prior to the surgery and that there has been no change in the patient's H&P, except as documented below: Dao Mueller MD Oct 30, 2019 06:57
[2019-10-30] MEDS ORDERED: Tylenol #3 tab (300mg/30mg) ORAL PRN (07:00)
[2019-10-30] MEDS ORDERED: HYDROmorphone 1mg/ml Carpuject SUBQ PRN (07:00)
[2019-10-30] MEDS ORDERED: HYDROcodone/Acetamin 5/325 tab ORAL PRN (07:00)
[2019-10-30] MEDS ORDERED: D5 1/2NS 1,000 ML IV SCH (07:00)
[2019-10-30] MEDS ORDERED: NS Irrig 1000ml ONE (09:00)
[2019-10-30] MEDS ORDERED: Sterile Water Irrig 1000ml IRRIG ONE (09:00)
[2019-10-30] MEDS ORDERED: DiphenhydrAMINE 50mg/ml Inj IVP PRN (09:30)
[2019-10-30] MEDS ORDERED: Hydromorphone 0.5mg/0.5ml inj IVP PRN (09:30)
--- NOTE | 2019-10-30 09:57 | Immediate Post-Op Evaluation ---
Immediate Post-Op Evalulation Immediate Post-Op Evalulation Procedure: L carpal tonnel and 4-th finger release Date of Evaluation: Oct 30, 2019 Time of Evaluation: 09:55 IV Fluids: 400 Blood Products: none Estimated Blood Loss: min Urinary Output: none Blood Pressure Systolic: 102 Blood Pressure Diastolic: 56 Pulse Rate: 82 Respiratory Rate: 20 O2 Sat by Pulse Oximetry: 99 Temperature (Fahrenheit): 97.6 Pain Score (1-10): 1 Nausea: No Vomiting: No Complications none Patient Status: reacts, patent, none Hal Giron MD Oct 30, 2019 09:57
--- NOTE | 2019-10-30 13:23 | 48 Hour Post Anesthesia Eval ---
Post Anesthesia Evaluation Procedure: L carpal tonnel and 4-th finger release Date of Evaluation: Oct 30, 2019 Time of Evaluation: 11:20 Blood Pressure Systolic: 136 0: 72 Pulse Rate: 68 Respiratory Rate: 20 Temperature (Fahrenheit): 97.6 O2 Sat by Pulse Oximetry: 98 Airway: patent Nausea: No Vomiting: No Pain Intensity: 2 Hydration Status: adequate Cardiopulmonary Status: stable Mental Status/LOC: patient returned to baseline Follow-up Care/Observations: n/a Post-Anesthesia Complications: none Follow-up care needed: ready to discharge Hal Giron MD Oct 30, 2019 13:23
--- NOTE | 2019-10-30 15:15 | Operative Note - Dictated ---
DATE OF OPERATION: 10/30/2019 PREOPERATIVE DIAGNOSES: 1. Left carpal tunnel syndrome. 2. Left ring finger trigger finger. POSTOPERATIVE DIAGNOSES: 1. Left carpal tunnel syndrome. 2. Left ring finger trigger finger. PROCEDURE: 1. Left median nerve decompression. 2. Synovectomy of flexor tendon left wrist. 3. Left ring finger trigger release. SURGEON: Dao Mueller M.D. ANESTHESIA: MAC. INDICATION FOR PROCEDURE: The patient is a pleasant gentleman, who has had bilateral carpal tunnel syndrome. He did well with the right side, elected to undergo left carpal tunnel release. He also had a trigger and locking of the middle finger. He failed conservative treatment and elected to go release of the A1 aris. Risks, limitations, expectations, complications of the procedure were discussed in detail. All questions were addressed. DESCRIPTION OF PROCEDURE: After informed consent was obtained, the patient was taken to the operating room. The patient was placed under general anesthesia. Left arm was prepped and draped in a sterile manner. Time-out was performed. The carpal tunnel incision was marked out. An Esmarch used to exsanguinate the extremity. Skin was incised. Subcutaneous tissue was dissected down. Palmar fascia was incised. The transverse carpal tunnel was identified and incised using direct visualization. Once this was done, using a blunt tipped tenotomy scissors, the transverse carpal tunnel was released with care. Once adequate release was verified visually, the skin was closed using 4-0 nylon sutures. Once that was done, attention turned towards the trigger finger. The skin was incised. Subcutaneous tissue was dissected down to the A1 aris. The A1 aris was dissected using siccors. Once adequate release was performed, the wound was copiously irrigated. The skin was closed using 3-0 nylon sutures. Compression dressing was applied. The patient was awoken and taken to recovery room with stable vital signs. ESTIMATED BLOOD LOSS: None. COMPLICATIONS: None. SPECIMENS: None. IMPLANTS: None. Dao Mueller M.D. DR: CALVIN JOB#: [id number] CC: ANJEL
== END 2019-10-30 11:30 | disposition home or self-care (01) ==
LOC: SUR 05:32
DX: G56.02 Carpal tunnel syndrome, left upper limb (principal); M65.342 Trigger finger, left ring finger; E78.5 Hyperlipidemia, unspecified; I10 Essential (primary) hypertension; K21.9 Gastro-esophageal reflux disease without esophagitis; Z85.528 Personal history of other malignant neoplasm of kidney; Z90.5 Acquired absence of kidney; E11.9 Type 2 diabetes mellitus without complications; M19.90 Unspecified osteoarthritis, unspecified site; Z88.8 Allergy status to other drugs, medicaments and biological substances; I45.10 Unspecified right bundle-branch block
CPT/HCPCS: 26055; 36415; 64721; 82962; 84132; J0690; J2250; J2704; J3010; J3490; J7030; 94003; 94150